=== PATIENT | male | born 1950 | race Caucasian/White ===

== ENCOUNTER → 2023-10-04 09:20 | Outpatient (REF) | payer MEDICARE, OTHER, SELFPAY | LOC: REG 09:20 | PROVIDERS: ATTENDING PHYSICIAN Urology; FAMILY PHYSICIAN Internal Medicine | DX: R97.20 Elevated prostate specific antigen [PSA] (principal) | CPT/HCPCS: 36415; 84153 ==

== ENCOUNTER → 2024-01-03 09:19 | Outpatient (REF) | payer MEDICARE, OTHER, SELFPAY | LOC: MRI 3T 09:19 | PROVIDERS: ATTENDING PHYSICIAN Urology; FAMILY PHYSICIAN Internal Medicine | DX: R97.20 Elevated prostate specific antigen [PSA] (principal) | CPT/HCPCS: 72197; A9575 ==

== ENCOUNTER → 2024-04-14 08:18 | Outpatient (REF) | payer MEDICARE, OTHER, SELFPAY | LOC: RAD 08:18 | PROVIDERS: ATTENDING PHYSICIAN Urology; FAMILY PHYSICIAN Internal Medicine | DX: C61 Malignant neoplasm of prostate (principal) | CPT/HCPCS: 78306; A9503 ==

== ENCOUNTER → 2024-10-20 11:01 | Outpatient (REF) | payer MEDICARE, OTHER, SELFPAY | LOC: REG 11:01 | PROVIDERS: ATTENDING PHYSICIAN Family Medicine Geriatric Medicine; FAMILY PHYSICIAN Internal Medicine; OTHER PHYSICIAN Radiology Radiation Oncology; REFERRING PHYSICIAN Internal Medicine Hematology & Oncology | DX: C61 Malignant neoplasm of prostate (principal) | CPT/HCPCS: 36415; 84153 ==

== ENCOUNTER → 2025-01-30 12:07 | Outpatient (REF) | payer MEDICARE, OTHER, SELFPAY ==
[2025-01-30 15:25] LABS: PSA, Total - Diagnostic < 0.06 ng/ml (0.0-4.0)
[2025-02-02 00:48] LABS: % Free Testosterone 1.2 % (1.6-2.9); Free Testosterone 1 pg/mL (47-244); Sex Hormone Binding Globulin 53 nmol/L (19-76); Total Testosterone 11 ng/dL (300-720)
== END ==
LOC: REG 12:07
PROVIDERS: ATTENDING PHYSICIAN Family Medicine Geriatric Medicine; FAMILY PHYSICIAN Internal Medicine
DX: C61 Malignant neoplasm of prostate (principal); Z12.5 Encounter for screening for malignant neoplasm of prostate; Z79.818 Long term (current) use of other agents affecting estrogen receptors and estrogen levels
CPT/HCPCS: 36415; 84153; 84270; 84402; 84403

== ENCOUNTER → 2025-06-15 11:31 | Outpatient (REF) | payer MEDICARE, OTHER, SELFPAY ==
[2025-06-15 14:15] LABS: PSA, Total - Screen < 0.06 ng/ml (0.0-4.0)
== END ==
LOC: REG 11:31
PROVIDERS: ATTENDING PHYSICIAN Family Medicine Geriatric Medicine; FAMILY PHYSICIAN Internal Medicine
DX: C61 Malignant neoplasm of prostate (principal); Z12.5 Encounter for screening for malignant neoplasm of prostate; Z79.818 Long term (current) use of other agents affecting estrogen receptors and estrogen levels
CPT/HCPCS: 36415; 84270; 84402; 84403; G0103